=== PATIENT | male | born 1975 | race African-American/Black ===

== ENCOUNTER 2016-07-31 03:23 | Emergency (ER) | payer MEDICARE ==
[~2016-07-31] VITALS: Ht 167.6 cm; Wt 81.6 kg
[2016-07-31 03:23] VITALS: BP 129/90
[2016-07-31] MEDS ORDERED: ACETAMINOPHEN 500 MG TABLET PO ONE (04:00)
--- NOTE | 2016-07-31 04:10 | PHYS DOC ---
Adult General Chief Complaint Chief Complaint: HEADACHE HPI HPI 41-year-old male who presents by EMS for significant right sided headache for the last 3 days. He denies any nausea vomiting. He states he has been ill injury. He denies any problems with his vision. He denies any drug or alcohol use. Patient does state he has history of Tourette syndrome and diabetes but does not take any medications. He states he does not have insurance. Patient is speaking in complete sentences and is in no acute distress. It does appear that he has an underlying psychiatric disorder some kind per EMS. Patient was staying at the [facility] prior to arrival. He denies any nausea or vomiting. He denies any neck stiffness. He denies any numbness or tingling in any of his extremities. He has not taken anything for symptoms. Review of Systems Review of Systems Constitutional: Denies fever or chills [] Eyes: Denies change in visual acuity, redness, or eye pain [] HENT: Denies nasal congestion or sore throat [] Respiratory: Denies cough or shortness of breath [] Cardiovascular: No additional information not addressed in HPI [] GI: Denies abdominal pain, nausea, vomiting, bloody stools or diarrhea [] : Denies dysuria or hematuria [] Musculoskeletal: Denies back pain or joint pain [] Integument: Denies rash or skin lesions [] Neurologic: Has headache, denies focal weakness or sensory changes [] Endocrine: Denies polyuria or polydipsia [] Current Medications Current Medications Current Medications Medications (Trade) Dose Ordered Sig/[facility] Start Time Stop Time Status Last Admin Dose Admin Acetaminophen (Tylenol) 1,000 mg 1X ONCE 07/31/16 04:00 07/31/16 04:01 DC 07/31/16 04:22 1,000 MG Allergies Allergies Allergies Coded Allergies Type Severity Reaction Last Updated Verified Unable to Assess 07/31/16 No Physical Exam Physical Exam Constitutional: Well developed, well nourished, no acute distress, non-toxic appearance. [] HENT: Normocephalic, atraumatic, bilateral external ears normal, oropharynx moist, no oral exudates, nose normal. [] Eyes: PERRLA, EOMI, conjunctiva normal, no discharge. [] Neck: Normal range of motion, no tenderness, supple, no stridor. [] Cardiovascular:Heart rate regular rhythm, no murmur [] Lungs & Thorax: Bilateral breath sounds clear to auscultation [] Abdomen: Bowel sounds normal, soft, no tenderness, no masses, no pulsatile masses. [] Skin: Warm, dry, no erythema, no rash. [] Back: No tenderness, no CVA tenderness. [] Extremities: No tenderness, no cyanosis, no clubbing, ROM intact, no edema. [] Neurologic: Alert and oriented X 3, normal motor function, normal sensory function, no focal deficits noted. [] Psychologic: Affect normal, judgement normal, mood normal. [] Current Patient Data Vital Signs Vital Signs Date Time Temp Pulse Resp B/P Pulse Ox O2 Delivery O2 Flow Rate FiO2 07/31/16 03:23 97.6 72 18 98 Room Air 97.6 EKG EKG [] Radiology/Procedures Radiology/Procedures [] Course & Med Decision Making Course & Med Decision Making Pertinent Labs and Imaging studies reviewed. (See chart for details) This 41-year-old male has a normal exam and in no acute distress. There is no indication at this time to perform any laboratory workup or imaging. I will be giving him a dose of Tylenol and observing in the department for several hours. Ultimately he'll be discharged with close follow-up with his primary care doctor. Upon my final reasssesment, the patient's headache has improved with tylenol. He will be given resources with the [facility] as he is displaying some signs of possible psychiatric disorder and will benefit with close follow up. Dragon Disclaimer Dragon Disclaimer This electronic medical record was generated, in whole or in part, using a voice recognition dictation system. Departure Departure Impression: Primary Impression: Headache Disposition: 01 HOME, SELF-CARE Admitting Physician: Other Condition: STABLE Referrals: NO PCP (PCP) Patient Instructions: General Headache Without Cause, [id number] Additional Instructions: Please follow up with your primary doctor in the next 2-3 days for your headache symptoms. Return to the ER if you develop any worsening of your symptoms. HARSHAL SAMS DO Jul 31, 2016 04:10
== END 2016-07-31 05:20 | disposition home or self-care (01) ==
LOC: ER 03:23
DX: R51 Headache (principal); F95.2 Tourette's disorder; E11.9 Type 2 diabetes mellitus without complications
CPT/HCPCS: 99282; 99283

== ENCOUNTER 2016-07-31 06:45 | Emergency (ER) | payer MEDICARE ==
[~2016-07-31] VITALS: Ht 167.6 cm; Wt 81.6 kg
[2016-07-31 06:47] VITALS: BP 115/59
--- NOTE | 2016-07-31 06:55 | PHYS DOC ---
Past Medical History Past Medical History: Diabetes-Type II, Other Additional Past Medical Histor: MOON Past Surgical History: No Surgical History Alcohol Use: None Drug Use: None Adult General Chief Complaint Chief Complaint: EARACHE/EAR PAIN HPI HPI 41-year-old male with history of schizophrenia presenting to the emergency department today with right ear pain. His pain is sharp moderate intermittent and not associated with fevers or chills. He denies vision changes numbness weakness or tingling. He denies any other complaints. He denies suicidal or homicidal ideation. Review of systems is negative for chest pain shortness of breath nausea vomiting fevers chills abdominal pain polyuria dysuria diarrhea or constipation. Pertinent physical exam findings showed normal tympanic membrane. Neuro exam was unremarkable. Lungs were clear to auscultation with a regular rate and rhythm of the heart. Abdomen soft nontender. Essentially normal physical exam. Medical decision making 41-year-old male presenting with otalgia. Vital signs unremarkable. Physical exam unremarkable. Medical screening exam performed. Vision subsequent discharged home to follow up with primary care physician over the next 2-3 days. Review of Systems Review of Systems See above Allergies Allergies Allergies Coded Allergies Type Severity Reaction Last Updated Verified Unable to Assess 07/31/16 No Physical Exam Physical Exam Constitutional: Well developed, well nourished, no acute distress, non-toxic appearance. [] HENT: Normocephalic, atraumatic, bilateral external ears normal, oropharynx moist, no oral exudates, nose normal. [] Eyes: PERRLA, EOMI, conjunctiva normal, no discharge. [] Neck: Normal range of motion, no tenderness, supple, no stridor. [] Cardiovascular:Heart rate regular rhythm, no murmur [] Lungs & Thorax: Bilateral breath sounds clear to auscultation [] Abdomen: Bowel sounds normal, soft, no tenderness, no masses, no pulsatile masses. [] Skin: Warm, dry, no erythema, no rash. [] Back: No tenderness, no CVA tenderness. [] Extremities: No tenderness, no cyanosis, no clubbing, ROM intact, no edema. [] Neurologic: Alert and oriented X 3, normal motor function, normal sensory function, no focal deficits noted. [] Psychologic: Affect normal, judgement normal, mood normal. [] EKG EKG [] Radiology/Procedures Radiology/Procedures [] Course & Med Decision Making Course & Med Decision Making Pertinent Labs and Imaging studies reviewed. (See chart for details) See above Dragon Disclaimer Dragon Disclaimer This electronic medical record was generated, in whole or in part, using a voice recognition dictation system. Departure Departure Impression: Primary Impression: Nathanael Disposition: HOME, SELF-CARE Condition: STABLE Referrals: NO PCP (PCP) SATNAM VALENCIA MD Patient Instructions: Nathanael-Brief Additional Instructions: Thank you for allowing us to participate in your care today. Followup with your primary care physician in 3 days if your symptoms do not improve. If you do not have a primary care provider you can ask for a list of our primary care providers. Return to the emergency department you have any new or concerning findings. This should be evaluated by the primary care physician and any necessary consulting services for continued management within a few days after discharge. Return to emergency room if you have any new or concerning symptoms including but not limited to fever, chills, nausea, vomiting, intractable pain, any new rashes, chest pain, shortness of air, uncontrolled bleeding, difficulty breathing, and/or vision loss. ANGIE LUTZ MD Jul 31, 2016 06:55
== END 2016-07-31 06:58 | disposition home or self-care (01) ==
LOC: ER 06:45
DX: H92.01 Otalgia, right ear (principal); F20.9 Schizophrenia, unspecified; E11.9 Type 2 diabetes mellitus without complications
CPT/HCPCS: 99281

== ENCOUNTER 2017-01-25 21:43 | Emergency (ER) | payer MEDICARE ==
[~2017-01-25] VITALS: Ht 167.6 cm; Wt 77.1 kg
[2017-01-25 22:37] LABS: BASO # 0.1 x10^3/uL (0.0-0.2); BASO % 1 % (0-3); EOS % 6 % (0-3); HEMATOCRIT 37.3 % (39.0-53.0); LYMPH # 1.6 x10^3/uL (1.0-4.8); LYMPH % 38 % (24-48); MEAN CORPUSCULAR HEMOGLOBIN 24 pg (25-35); MEAN CORPUSCULAR HGB CONC 32 g/dL (31-37); MEAN CORPUSCULAR VOLUME 75 fL (79-100); MONO % 9 % (0-9); NEUT % 46 % (31-73); PLATELET COUNT 243 x10^3/uL (140-400); RED BLOOD COUNT 4.96 x10^6/uL (4.30-5.70); RED CELL DISTRIBUTION WIDTH 15.4 % (11.5-14.5); WHITE BLOOD COUNT 4.2 x10^3/uL (4.0-11.0)
[2017-01-25 22:49] LABS: CALCIUM 8.5 mg/dL (8.5-10.1); CREATININE 0.8 mg/dL (0.7-1.3); GFR 129.5; POTASSIUM 3.4 mmol/L (3.5-5.1)
[2017-01-25 22:55] LABS: ALBUMIN 3.4 g/dL (3.4-5.0); ALBUMIN/GLOBULIN RATIO 0.9 (1.0-1.7); TOTAL BILIRUBIN 0.4 mg/dL (0.2-1.0); TOTAL PROTEIN 7.4 g/dL (6.4-8.2)
[2017-01-25 23:40] LABS: BARBITURATES NEG (NEG); BENZODIAZEPINES NEG (NEG); CANNABINOIDS NEG (NEG); COCAINE NEG (NEG); METHADONE NEG (NEG); OPIATES NEG (NEG); PHENCYCLIDINE NEG (NEG)
[2017-01-26 00:02] VITALS: BP 116/72
--- NOTE | 2017-01-26 03:33 | PHYS DOC ---
Past Medical History Past Medical History: Diabetes-Type II, Other Additional Past Medical Histor: MOON Past Surgical History: No Surgical History Alcohol Use: None Drug Use: None Adult General Chief Complaint Chief Complaint: HALLUCINATIONS AUDIBLE/VISUAL HPI HPI Patient is a 41 year old -[place] male well-known to this ED with history of chronic psychosis, substance abuse who presents with hallucinations. Patient is currently homeless and contacted EMS. He denies persecutory or command hallucinations. Patient denies SI, HI. Denies recent drugs or alcohol. No other acute symptoms or complaints. Review of Systems Review of Systems ROS as per HPI. Allergies Allergies Allergies Coded Allergies Type Severity Reaction Last Updated Verified No Known Drug Allergies 01/25/17 No Physical Exam Physical Exam Constitutional: Well developed, well nourished, no acute distress, non-toxic appearance. [] HENT: Normocephalic, atraumatic, bilateral external ears normal, oropharynx moist, no oral exudates, nose normal. [] Eyes: PERRLA, EOMI, conjunctiva normal, no discharge. [] Neck: Normal range of motion, no tenderness, supple, no stridor. [] Cardiovascular:Heart rate regular rhythm, no murmur [] Lungs & Thorax: Bilateral breath sounds clear to auscultation [] Abdomen: Bowel sounds normal, soft, no tenderness, no masses, no pulsatile masses. [] Skin: Warm, dry, no erythema, no rash. [] Back: No tenderness, no CVA tenderness. [] Extremities: No tenderness, no cyanosis, no clubbing, ROM intact, no edema. [] Neurologic: Alert and oriented X 1, normal motor function, normal sensory function, no focal deficits noted. [] Psychologic: Affect anxious. [] Current Patient Data Vital Signs Vital Signs Date Time Temp Pulse Resp B/P (MAP) Pulse Ox O2 Delivery O2 Flow Rate FiO2 01/26/17 00:02 62 18 116/72 (87) 100 Room Air 01/25/17 21:47 98.3 98.3 Lab Values Laboratory Tests Test 01/25/17 22:28 01/25/17 22:30 01/25/17 23:25 Glucose (Fingerstick) 100 mg/dL (70-99) H White Blood Count 4.2 x10^3/uL (4.0-11.0) Red Blood Count 4.96 x10^6/uL (4.30-5.70) Hemoglobin 12.0 g/dL (13.0-17.5) L Hematocrit 37.3 % (39.0-53.0) L Mean Corpuscular Volume 75 fL (79-100) L Mean Corpuscular Hemoglobin 24 pg (25-35) L Mean Corpuscular Hemoglobin Concent 32 g/dL (31-37) Red Cell Distribution Width 15.4 % (11.5-14.5) H Platelet Count 243 x10^3/uL (140-400) Neutrophils (%) (Auto) 46 % (31-73) Lymphocytes (%) (Auto) 38 % (24-48) Monocytes (%) (Auto) 9 % (0-9) Eosinophils (%) (Auto) 6 % (0-3) H Basophils (%) (Auto) 1 % (0-3) Neutrophils # (Auto) 1.9 x10^3uL (1.8-7.7) Lymphocytes # (Auto) 1.6 x10^3/uL (1.0-4.8) Monocytes # (Auto) 0.4 x10^3/uL (0.0-1.1) Eosinophils # (Auto) 0.3 x10^3/uL (0.0-0.7) Basophils # (Auto) 0.1 x10^3/uL (0.0-0.2) Sodium Level 141 mmol/L (136-145) Potassium Level 3.4 mmol/L (3.5-5.1) L Chloride Level 106 mmol/L (98-107) Carbon Dioxide Level 28 mmol/L (21-32) Anion Gap 7 (6-14) Blood Urea Nitrogen 17 mg/dL (8-26) Creatinine 0.8 mg/dL (0.7-1.3) Estimated GFR (Cockcroft-Gault) 129.5 BUN/Creatinine Ratio 21 (6-20) H Glucose Level 109 mg/dL (70-99) H Calcium Level 8.5 mg/dL (8.5-10.1) Total Bilirubin 0.4 mg/dL (0.2-1.0) Aspartate Amino Transferase (AST) 18 U/L (15-37) Alanine Aminotransferase (ALT) 27 U/L (16-63) Alkaline Phosphatase 74 U/L (46-116) Total Protein 7.4 g/dL (6.4-8.2) Albumin 3.4 g/dL (3.4-5.0) Albumin/Globulin Ratio 0.9 (1.0-1.7) L Ethyl Alcohol Level < 10 mg/dL (0-10) Urine Opiates Screen Neg (NEG) Urine Methadone Screen Neg (NEG) Urine Barbiturates Neg (NEG) Urine Phencyclidine Screen Neg (NEG) Urine Amphetamine/Methamphetamine Neg (NEG) Urine Benzodiazepines Screen Neg (NEG) Urine Cocaine Screen Neg (NEG) Urine Cannabinoids Screen Neg (NEG) Urine Ethyl Alcohol Neg (NEG) Laboratory Tests 01/25/17 22:30 Laboratory Tests 01/25/17 22:30 EKG EKG [EKG: Normal sinus rhythm, no acute ST-T wave changes.] Radiology/Procedures Radiology/Procedures [] Course & Med Decision Making Course & Med Decision Making Pertinent Labs and Imaging studies reviewed. (See chart for details) [No acute medical complaints. Psychiatric assessment team contacted. Patient medically cleared for RSI.] Dragon Disclaimer Dragon Disclaimer This electronic medical record was generated, in whole or in part, using a voice recognition dictation system. Departure Departure Impression: Primary Impression: Substance abuse Additional Impression: Chronic psychosis Disposition: 01 HOME, SELF-CARE Condition: STABLE Patient Instructions: Psychosis, Substance Abuse-Brief Additional Instructions: Please go straight to RSI upon discharge from the ED. Problem Qualifiers MATT DUMONT DO Jan 26, 2017 03:32
--- NOTE | 2017-01-26 06:05 | EKG ---
[facility] [address] [place] [address] Test Date: 2017-01-25 Test Time: 22:14:57 Pat Name: ZIA VALENTE Department: Room: Gender: M Epic Anesthesia Analyst: : 1975 Requested By: MATT DUMONT Order Number: [id number] Reading MD: Measurements Intervals [place] Rate: 57 P: 23 CO: 174 QRS: -25 QRSD: 98 T: 16 QT: 404 QTc: 396 Interpretive Statements SINUS RHYTHM LEFTWARD AXIS R-S TRANSITION ZONE IN V LEADS DISPLACED TO THE RIGHT INCOMPLETE RIGHT BUNDLE BRANCH BLOCK CONSIDER LEFT VENTRICULAR HYPERTROPHY QRS(T) CONTOUR ABNORMALITY CANNOT RULE OUT ANTEROSEPTAL MYOCARDIAL DAMAGE RI6.01 Unconfirmed report No previous ECG available for comparison
== END 2017-01-26 00:04 | disposition home or self-care (01) ==
LOC: ER 21:43
DX: F28 Other psychotic disorder not due to a substance or known physiological condition (principal); F19.10 Other psychoactive substance abuse, uncomplicated; R44.3 Hallucinations, unspecified; E11.9 Type 2 diabetes mellitus without complications
CPT/HCPCS: 36415; 80053; 80307; 82962; 85025; 93005; 99285; G0480; G0479